=== PATIENT | female | born 1980 | race Caucasian/White ===

== ENCOUNTER 2020-07-13 11:46 | Emergency (ER) | payer BC, OTHER ==
[~2020-07-13 11:46] MED LIST: NORCO 5-325 TA1 EACH PO
[2020-07-13 14:59] LABS: HEMOGLOBIN 14.4 gm/dl (12.3-15.3); RED BLOOD COUNT 4.11 M/UL (4.00-5.10)
[2020-07-13 15:17] LABS: BUN/CREATININE RATIO 9 (0-10)
[2020-07-13] MEDS ORDERED: PEPCID20 MG PO (17:07)
== END 2020-07-13 17:19 | disposition home or self-care (01) ==
LOC: ER1 11:46
PROVIDERS: Emergency Medicine
DX: R10.11 Right upper quadrant pain (principal); R10.12 Left upper quadrant pain; R11.2 Nausea with vomiting, unspecified; R19.7 Diarrhea, unspecified; Z90.49 Acquired absence of other specified parts of digestive tract; F17.210 Nicotine dependence, cigarettes, uncomplicated
CPT/HCPCS: 80053; 81001; 83690; 84703; 85025; 96374; 96375; 99284; J1885; J7030; Q9967

== ENCOUNTER 2021-04-26 19:18 | Emergency (ER) | payer BC ==
[~2021-04-26 19:18] MED LIST changes: +PEPCID20 MG PO
[2021-04-26 21:56] LABS: HEMOGLOBIN 13.2 gm/dl (12.3-15.3); RED BLOOD COUNT 3.86 M/UL (4.00-5.10); WHITE BLOOD COUNT 14.9 K/UL (4.5-11.0)
[2021-04-26 22:41] LABS: BUN/CREATININE RATIO 14 (0-10)
== END 2021-04-26 23:10 | disposition home or self-care (01) ==
LOC: ER1 19:18
PROVIDERS: Physician Assistant
DX: R20.2 Paresthesia of skin (principal); Z20.822 Contact with and (suspected) exposure to COVID-19; F17.210 Nicotine dependence, cigarettes, uncomplicated; Z88.5 Allergy status to narcotic agent
CPT/HCPCS: 70450; 70486; 80053; 82550; 82553; 83874; 84484; 85025; 87081; 87880; 93005; 99284; U0002